=== PATIENT | female | born 1975 | race Caucasian/White ===

== ENCOUNTER 2016-09-20 09:28 | Emergency (ER) | payer OTHER ==
[2016-09-20] MEDS: 0.9 % SODIUM CHLORIDE 1,000 ML IV ONE (09:48)
[2016-09-20] MEDS ORDERED: MAGNESIUM SULFATE/D5W 100 ML IV ONE ×2 (09:48→10:31)
[2016-09-20] MEDS ORDERED: ONDANSETRON HCL/PF 4 MG/ 2ML VIAL ONE (09:48)
[2016-09-20] MEDS ORDERED: DEXAMETHASONE SOD PHOS 4 MG/ML VIAL ONE (09:48)
[2016-09-20] MEDS ORDERED: KETOROLAC TROMETHAMINE 30 MG/1ML VIAL ONE (09:48)
[2016-09-20] MEDS ORDERED: 0.9 % SODIUM CHLORIDE 1,000 ML IV ONE (09:48)
[2016-09-20] MEDS: DEXAMETHASONE SOD PHOS 4 MG/ML VIAL IVP ONE (09:49)
[2016-09-20] MEDS: ONDANSETRON HCL/PF 4 MG/ 2ML VIAL IVP ONE (09:50)
[2016-09-20] MEDS: KETOROLAC TROMETHAMINE 30 MG/1ML VIAL IVP ONE (09:51)
[2016-09-20] MEDS: MAGNESIUM SULFATE/D5W 1 GM in PREMIX BAG 1 BAG IV ONE ×2 (09:52→10:32)
--- NOTE | 2016-09-20 10:06 | ED Physician Documentation ---
Headache - HPI Stated Complaint: Migraine headache Chief Complaint: Headache Additional Information: h/a onset progressive 4 d ago w/typical mc aura prog worse w/profuse n/e- tryptins do not help Onset: days ago (4) Timing: gradual New Gradual Onset: No Exposure To: none Severity: moderate Quality: similar to previous Associated Symptoms: problems with vision, sensitivity to light, nausea, vomiting. denies: fever, chills Preceding Symptoms: visual disturbance Exacerbated By: light, noise, movement - ROS NEURO/PSYCH: depression EYES/ENT: denies: sore throat, difficulty swallowing CVS/RESP: none GI/: abdominal pain MS/SKIN/LYMPH: denies: muscle aches all systems neg except as marked: Yes - PAST HX Medical History: no pertinent history, migraines Surgical History: other (c-sect) Allergies/Adverse Reactions: Allergies Allergy/AdvReac Type Severity Reaction Status Date / Time meperidine HCl [From Demerol] AdvReac Throat Verified 09/20/16 09:38 Swelling Penicillins AdvReac Throat Verified 09/20/16 09:38 Swelling Home Medications: Ambulatory Orders Medication Instructions Recorded NK [NK] 09/20/16 - SOCIAL HX Smoking History: non-smoker Alcohol Use: none - Family HX Family History: none - VITAL SIGNS Vital Signs: Vital Signs Temp Pulse Resp BP Pulse Ox 98.1 F 69 20 108/53 100 09/20/16 09:41 09/20/16 09:41 09/20/16 09:41 09/20/16 09:41 09/20/16 09:41 - REVIEWED ASSESSMENTS Nursing Assessment Reviewed: Yes Vitals Reviewed: Yes ED Results Lab/Radiology - Orders Orders: ED Orders Category Date Time Status Place Saline Lock/IV Now Care 09/20/16 09:46 Active 0.9 % Sodium Chloride [Normal Saline] 1,000 ml Med 09/20/16 09:48 Discontinued IV .STK-MED 0.9 % Sodium Chloride [Normal Saline] 1,000 ml Med 09/20/16 09:47 Discontinued IV NOW Dexamethasone Sod Phosphate [Decadron] Med 09/20/16 09:48 Discontinued 4 mg .ROUTE .STK-MED ONE Dexamethasone Sod Phosphate [Decadron] Med 09/20/16 09:46 Discontinued 4 mg IVP NOW ONE Ketorolac Tromethamine [Toradol] Med 09/20/16 09:48 Discontinued 30 mg .ROUTE .STK-MED ONE Ketorolac Tromethamine [Toradol] Med 09/20/16 09:46 Discontinued 30 mg IVP NOW ONE Magnesium Sulfate/D5w [Magnesium-D5w 1 gm/100 ml Soln] Med 09/20/16 09:46 Discontinued 1 gm Premix Bag [Premix Fluid] 1 bag IV NOW Magnesium Sulfate/D5w [Magnesium-D5w 1 gm/100 ml Soln] Med 09/20/16 09:47 Discontinued 1 gm Premix Bag [Premix Fluid] 1 bag IV NOW Magnesium Sulfate/D5w [Magnesium-D5w 1 gm/100 ml Soln] Med 09/20/16 10:31 Discontinued 100 ml IV .STK-MED Magnesium Sulfate/D5w [Magnesium-D5w 1 gm/100 ml Soln] Med 09/20/16 09:48 Discontinued 200 ml IV .STK-MED Ondansetron HCl/Pf [Zofran 4 mg/2 ml] Med 09/20/16 09:48 Discontinued 4 mg .ROUTE .STK-MED ONE Ondansetron HCl/Pf [Zofran 4 mg/2 ml] Med 09/20/16 09:46 Discontinued 4 mg IVP NOW ONE Headache Physical Exam - EXAM General Appearance: moderate distress EENT: no facial swelling Neck: normal inspection Respiratory: no resp distress, breath sounds normal CVS: reg. rate & rhythm, heart sounds nml Abdomen: non-tender Skin: color nml, no rash. No: cyanosis, diaphoresis, pallor Extremitites: non-tender, normal range of motion - NEURO/PSYCH Higher Functions: alert, oriented x3. denies: mood/affect nml Cerebellar: nml as tested (amb to ed w/o difficulty) Discharge Clincal Impression: Migraine headache with aura Home Medications: Ambulatory Orders NK [NK] 09/20/16 Comments: home sleep dark room Condition: Good Disposition: 01 HOME, SELF-CARE Decision to Admit: NO Decision Time: 11:06
[2016-09-20 11:16] VITALS: BP 103/48
== END 2016-09-20 11:09 | disposition home or self-care (01) ==
LOC: ED 09:28
DX: G43.009 Migraine without aura, not intractable, without status migrainosus (principal)
CPT/HCPCS: J1100; J1885; J2405; J3475; J7030; 96361; 96374; 96375; 99283; 99284; S1016

== ENCOUNTER 2017-10-30 10:44 | Outpatient (CLI) | payer BC, OTHER ==
[2017-10-31 09:49] LABS: ADENOVIRUS DNA NEGATIVE (NEGATIVE); BORDETELLA PERTUSSIS DNA NEGATIVE (NEGATIVE); SOURCE: NASOPHARYNGEAL SWAB
--- NOTE | 2017-11-01 07:03 | Diagnostic Imaging Report ---
KARY GARCIA (CHRONIC MANAGER) - OP [facility] [address] [facility] [address] Report Submission Date: Oct 30, 2017 12:35:32 PM [employer] Patient Study Name: LALITHA MCDANIEL Date: Oct 30, 2017 11:03:34 AM [employer]ODUCT [employer]CH[employer] Modality Type: CR Gender: F Description: CHEST : 73 Institution: [facility] Physician: KARY GARCIA (HUGH) - OP Chest 2 views History: Cough and fever Findings: Breast implants are observed. A calcified left lung granuloma is present. There is no infiltrate or pleural effusion. Heart size and pulmonary vascularity are normal. Mild dextroconvex thoracic scoliosis is present. Impression: Scoliosis, breast implants, and old granulomatous disease without pneumonia. Electronically signed on Oct 30, 2017 12:35:32 PM PRODUCT MERCHANDISER by: Vinh LOBO
== END 2017-10-30 10:45 ==
LOC: LAB 10:44
PROVIDERS: ATTEND Nurse Practitioner Family
DX: J11.1 Influenza due to unidentified influenza virus with other respiratory manifestations (principal); R05 Cough; R50.9 Fever, unspecified
CPT/HCPCS: 71046; 87486; 87581; 87633; 87798

== ENCOUNTER 2019-05-10 13:44 | Outpatient (CLI) | payer BC ==
[2019-05-10 14:29] LABS: APPEARANCE,URINE CLOUDY (CLEAR); COLOR,URINE ORANGE (YELLOW)
== END 2019-05-10 13:46 ==
LOC: LAB 13:44
PROVIDERS: ATTEND Obstetrics & Gynecology Gynecologic Oncology
DX: R30.0 Dysuria (principal)
CPT/HCPCS: 81002; 87086

== ENCOUNTER 2019-05-11 18:36 | Observation (INO) | payer BC, OTHER ==
--- NOTE | 2019-05-11 18:40 | ED Physician Documentation ---
Abdominal Pain - HISTORIAN Historian: patient - HPI Stated Complaint: abdominal pain Chief Complaint: Abdominal Pain Onset: days ago (1 -- increased since 3 pm ) Duration: constant Timing: worse Context: denies: out of country travel, bad food, recent trauma Severity: severe (10/10) Quality: pain Associated Symptoms: nausea, other (she had a UTI two days ago ) Exacerbated by: movements, upright position Relieved by: nothing Further Comments: yes (She states two days ago she was treated for a UTI and she states the symptoms were progressively worse tonight and she started to have 10/10 pain and she decided to come to ER. She does have nausea. No fever. NO visable blood in urine although she is taking Azo. The pain is right lower quadrant.) - ROS CONST: recent illness (UTI) GI/: dark urine, problems urinating (prior to today ) EYES/ENT: none MS/SKIN/LYMPH: none NEURO/PSYCH: none - SOCIAL HX Smoking History: non-smoker Alcohol Use: none Drug Use: none - FAMILY HX Family History: none - PAST HX Past History: none Ischemic Bowel Risk Factors: none Other History: none Immunizations: UTD Home Medications: Ambulatory Orders Medication Instructions Recorded NK 09/20/16 Allergies/Adverse Reactions: Allergies Allergy/AdvReac Type Severity Reaction Status Date / Time latex Allergy Verified 05/11/19 18:58 Sulfa (Sulfonamide Allergy Verified 05/11/19 18:58 Antibiotics) meperidine HCl [From Demerol] AdvReac Throat Verified 09/20/16 09:38 Swelling Penicillins AdvReac Throat Verified 09/20/16 09:38 Swelling - VITAL SIGNS Vital Signs: Vital Signs Temp Pulse Resp BP Pulse Ox 98.9 F 95 H 18 126/79 97 05/11/19 18:38 05/11/19 22:18 05/11/19 22:18 05/11/19 20:30 05/11/19 22:18 - REVIEWED ASSESSMENTS Nursing Assessment Reviewed: Yes Vitals Reviewed: Yes Progress - Progress Progress: 1934: states pain is 8/10 DG 1947: States pain is 5/10 and improved nausea DG 2012: States pain is back to an 8 DG 2022: States pain is a 4/10 DG 2036: states pain is now 8/10 DG 2114: states pain is 6-7/10 and discussion on what she feels is an acceptable pain level she states 5 DG 2129: she is saying pain is back to 8-9/10 she states she had a bladder surgery so she doesnt have sensation for when she needs to urinate. DG 2135: she states she is having some nausea at this time. up to bathroom with standby engineer second assistant DG 2149: still complains of nausea and pain. She states she cannot void . Did discuss I&O due to the fact she states she has no urinary urge at this time due to another surgery. After which she did void without increased pain. DG 2214: will admit to obs for pain control DG 2119: will keep her obs to control pain she is agreeable DG ED Results Lab/Radiology - Lab Results Lab Results: Lab Results 05/11/19 05/11/19 05/11/19 18:57 18:45 18:45 WBC 5.00 K/ul K/ul (4.00-12.00) RBC 4.57 M/ul M/ul (3.90-5.20) Hgb 13.1 g/dL g/dL (11.5-16.0) Hct 39.2 % % (34.5-46.5) MCV 86.0 fl fl (80.0-100.0) MCH 28.7 pg pg (28.0-34.0) MCHC 33.4 g/dL g/dL (30.0-36.0) RDW 13.8 % % (11.3-14.3) Plt Count 213 K/mm3 K/mm3 (130-400) Neut % (Auto) 58.2 % % (39.0-79.0) Lymph % (Auto) 31.9 % % (16.0-50.0) [place] % (Auto) 6.9 % % (0.0-11.0) Eos % (Auto) 2.7 % % (0.0-6.8) Baso % (Auto) 0.3 % % (0.0-1.5) Neut # (Auto) 2.9 # k/uL # k/uL (1.4-7.7) Lymph # (Auto) 1.6 # k/uL # k/uL (0.6-4.0) [place] # (Auto) 0.4 # k/uL # k/uL (0.0-0.9) Eos # (Auto) 0.1 # k/uL # k/uL (0.0-0.6) Baso # (Auto) 0.0 # k/uL # k/uL (0.0-0.5) Sodium 144 mmol/L mmol/L (137-145) Potassium 3.6 mmol/L mmol/L (3.5-5.1) Chloride 102 mmol/L mmol/L (98-107) Carbon Dioxide 27 mmol/L mmol/L (22-30) Anion Gap 18.6 BUN 16 mg/dL mg/dL (7-17) Creatinine 0.72 mg/dL mg/dL (0.52-1.04) Est GFR ( Amer) > 60 (60 - ) Est GFR (Non-Af Amer) > 60 (60 - ) Glucose 106 mg/dL mg/dL (74-106) Calcium 10.0 mg/dL mg/dL (8.4-10.2) Total Bilirubin 0.4 mg/dL mg/dL (0.2-1.3) AST 27 U/L U/L (15-46) ALT 15 U/L U/L (13-69) Alkaline Phosphatase 141 U/L H U/L (38-126) Total Protein 8.4 g/dL H g/dL (6.3-8.2) Albumin 5.0 g/dL g/dL (3.5-5.0) Urine Color [place] (YELLOW) Urine Appearance Clear (CLEAR) Urine pH 5.0 (5.0 - 8.0) Ur Specific [place] 1.025 (1.010-1.030) Urine Protein 2+ mg/dL H mg/dL (NEGATIVE) Urine Ketones Trace mg/dL H mg/dL (NEGATIVE) Urine Occult Blood 3+ H (NEGATIVE) Urine Nitrite Pos (NEGATIVE) Urine Bilirubin 2+ H (NEGATIVE) Urine Urobilinogen 4.0 Eu H Eu (0.2-1.0) Ur Leukocyte Esterase 3+ H (NEGATIVE) Urine Glucose 1+ mg/dL H mg/dL (NEGATIVE) - Radiology Radiology Impressions: Exam: CT abdomen and pelvis without contrast. History: Right-sided flank pain. Axial images through the abdomen and pelvis without oral or IV contrast is submitted along with sagittal and coronal reformatted images. The visualized lower lung singh are clear. No free intraperitoneal air is identified. The gallbladder is distended with a single stone associated with it measuring 1.1 cm in greatest diameter. The liver, spleen and pancreas appear normal in attenuation. The adrenal glands are normal configuration. The abdominal aorta is of normal caliber. No periaortic lymphadenopathy is detected on this study. A right-sided hydronephrosis and hydroureter is identified. A 2 mm distal right ureteral stone is noted. No left-sided hydronephrosis is identified. The urinary bladder is contracted. The uterus is not visualized. No adnexal masses or free cul-de-sac fluid is identified. The small bowel is of normal caliber. Air and stool seen throughout the large intestine. The appendix is not well visualized. A levoscoliosis to the lumbar spine is noted. No other bony abnormalities are identified. Impression: Right-sided hydronephrosis and hydroureter secondary to a distal 2 mm right ureteral stone. Cholelithiasis. Nonspecific bowel gas pattern. No inflammatory changes in the mesentery or ascites is identified. Electronically signed on May 11, 2019 7:21:18 PM CDT by: Joshua Hardy - Orders Orders: ED Orders Category Date Time Status IV Started NOW Care 05/11/19 18:[address] ABD & PELVIS W/O CON Stat Exams 05/11/19 Taken AMYLASE Routine Lab 05/11/19 Received CBC/PLATELET/DIFF Stat Lab 05/11/19 18:45 Completed CMP Stat Lab 05/11/19 18:45 Completed LIPASE Stat Lab 05/11/19 Received UA MACRO DIP ONLY Routine Lab 05/11/19 18:57 Completed URINE CULTURE Routine Lab 05/11/19 18:57 Received 0.9 % Sodium Chloride [Normal Saline] 1,000 ml Med 05/11/19 18:45 Discontinued IV NOW 0.9 % Sodium Chloride [Normal Saline] 1,000 ml Med 05/11/19 19:35 Discontinued IV NOW 0.9 % Sodium Chloride [Normal Saline] 1,000 ml Med 05/11/19 20:13 Discontinued IV NOW Ketorolac Tromethamine [Toradol] Med 05/11/19 18:46 Discontinued 30 mg IV NOW ONE Morphine Sulfate Med 05/11/19 20:35 Discontinued 2 mg IV NOW ONE Ondansetron HCl/Pf [Zofran] Med 05/11/19 18:46 Discontinued 4 mg IVP NOW ONE Promethazine HCl [Phenergan] 25 mg Med 05/11/19 21:39 Discontinued 0.9 % Sodium Chloride [Normal Saline] 50 ml IV NOW Tamsulosin HCl [Flomax] Med 05/11/19 20:26 Discontinued 0.4 mg PO NOW ONE fentaNYL CITRATE/PF [Sublimaze] Med 05/11/19 19:33 Discontinued 50 mcg IVP NOW ONE fentaNYL CITRATE/PF [Sublimaze] Med 05/11/19 20:13 Discontinued 50 mcg IVP NOW ONE Abdominal Pain Physical Exam - Physical Exam General Appearance: alert, moderate distress EENT: eye inspection normal, no signs of dehydration NECK: normal inspection RESPIRATORY: no resp distress, chest non-tender, breath sounds normal CVS: reg rate & rhythm, heart sounds normal ABDOMEN: soft, tenderness (RLQ ), abnormal bowel sounds, decreased BS RECTAL: normal exam BACK: normal inspection, CVA tenderness (R) SKIN: warm/dry, normal color EXTREMITIES: non-tender, normal range of motion NEURO: oriented X3 Vital Signs: Vital Signs Temp Pulse Resp BP Pulse Ox 98.9 F 95 H 18 126/79 97 05/11/19 18:38 05/11/19 22:18 05/11/19 22:18 05/11/19 20:30 05/11/19 22:18 Discharge Clincal Impression: Kidney stone on right side Cholelithiasis Qualifiers: Cholelithiasis location: other site Biliary obstruction: without biliary obstruction Qualified Code(s): K80.80 - Other cholelithiasis without obstruction Condition: Stable Decision to Admit: NO Date of Decison to Admit: 05/11/19 Decision Time: 22:16
[2019-05-11] MEDS ORDERED: 0.9 % SODIUM CHLORIDE 1,000 ML IV ONE ×3 (18:45→20:13)
[2019-05-11] MEDS ORDERED: KETOROLAC TROMETHAMINE 30 MG/1ML VIAL IV ONE (18:46)
[2019-05-11] MEDS ORDERED: ONDANSETRON HCL/PF 4 MG/ 2ML VIAL IVP ONE (18:46)
[2019-05-11 18:55] LABS: BASOPHILS % 0.3 % (0.0-1.5); NEUTROPHILS # 2.9 # k/uL (1.4-7.7)
[2019-05-11 19:07] LABS: eGFR (Non-African) > 60
[2019-05-11 19:08] LABS: APPEARANCE,URINE CLEAR (CLEAR); COLOR,URINE AMBER (YELLOW); OCCULT BLOOD,URINE 3+ (NEGATIVE)
[2019-05-11] MEDS ORDERED: fentaNYL CITRATE/PF 100 MCG/2 ML INJ. IVP ONE ×2 (19:33→20:13)
[2019-05-11] MEDS ORDERED: TAMSULOSIN HCL 0.4 MG CAP.ER.24H PO ONE (20:26)
[2019-05-11] MEDS ORDERED: MORPHINE SULFATE 5 MG/ML ML IV ONE (20:35)
[2019-05-11] MEDS ORDERED: PROMETHAZINE HCL 25 MG in 0.9 % SODIUM CHLORIDE 50 ML IV ONE (21:39)
[2019-05-11] MEDS ORDERED: KETOROLAC TROMETHAMINE 30 MG/1ML VIAL IV PRN (22:26)
[2019-05-11] MEDS ORDERED: fentaNYL CITRATE/PF 100 MCG/2 ML INJ. IV PRN (22:27)
[2019-05-11] MEDS ORDERED: ONDANSETRON HCL/PF 4 MG/ 2ML VIAL IVP PRN (22:28)
[2019-05-11] MEDS ORDERED: PROMETHAZINE HCL 25 MG in 0.9 % SODIUM CHLORIDE 50 ML IV PRN (22:28)
[2019-05-11] MEDS: 0.9 % SODIUM CHLORIDE 1,000 ML IV SCH (22:30)
[2019-05-11 23:07] VITALS: BMI 25.7
[2019-05-12 06:00] LABS: BASOPHILS % 0.5 % (0.0-1.5); NEUTROPHILS # 4.2 # k/uL (1.4-7.7)
[2019-05-12 06:05] LABS: eGFR (Non-African) > 60
[2019-05-12] MEDS ORDERED: traMADol HCL 50 MG TABLET PO PRN (06:46)
[2019-05-12] MEDS ORDERED: CYCLOBENZAPRINE HCL 10 MG TABLET PO PRN (06:47)
[2019-05-12] MEDS: 0.9 % SODIUM CHLORIDE 1,000 ML IV SCH (07:59)
[2019-05-12 08:40] VITALS: BP 111/74
[2019-05-12] MEDS ORDERED: TAMSULOSIN HCL 0.4 MG CAP.ER.24H PO SCH (09:00)
--- NOTE | 2019-05-12 10:16 | Discharge Summary ---
Discharge Summary - Discharge [facility] Admission Date: 05/11/19 Discharge Date: 05/12/19 Discharge To: Home History of Present Illness: Patient presented to ER for right flank pain and RLQ pain. Imaging revealed right kidney stone and gall bladder stone. Patient had intractable pain in the ER. She was admitted for pain control. Additional Instructions: Follow up with PCP within 4 days. Discuss referral to general surgeon for gall bladder removal Condition at Discharge: Stable Home Medications: Ambulatory Orders Medication Instructions Recorded NK 09/20/16 Consultations this Visit: None Procedures this Visit: None Allergies/Adverse Reactions: Allergies Allergy/AdvReac Type Severity Reaction Status Date / Time latex Allergy Verified 05/11/19 18:58 Sulfa (Sulfonamide Allergy Verified 05/11/19 18:58 Antibiotics) meperidine HCl [From Demerol] AdvReac Throat Verified 09/20/16 09:38 Swelling Penicillins AdvReac Throat Verified 09/20/16 09:38 Swelling Patient Problems: Current Active Problems Problem Status Onset Cholelithiasis Acute Kidney stone on right side Acute Discharge Summary: Patient presented to ER for right flank pain and RLQ pain. Imaging revealed r ight kidney stone and gall bladder stone. Patient had intractable pain in the ER. She was admitted for pain control. Patient utlized IV pain control meds and was transitioned to oral medication. Once pain was under control she was deemed stable for discharge. Hospital Course: See discharge summary
--- NOTE | 2019-05-12 14:13 | Diagnostic Imaging Report ---
PAOLO CERVANTES [facility] [address] [facility] [address] [place], [place]. [address] Report Submission Date: May 11, 2019 7:21:18 PM CDT Patient Study Name: LALITHA MCDANIEL Date: May 11, 2019 6:54:14 PM CDT Modality Type: CT\SR Gender: F Description: CT ABD PELVIS W/O CO : 73 Institution: [facility] Physician: PAOLO CERVANTES Exam: CT abdomen and pelvis without contrast. History: Right-sided flank pain. Axial images through the abdomen and pelvis without oral or IV contrast is submitted along with sagittal and coronal reformatted images. The visualized lower lung singh are clear. No free intraperitoneal air is identified. The gallbladder is distended with a single stone associated with it measuring 1.1 cm in greatest diameter. The liver, spleen and pancreas appear normal in attenuation. The adrenal glands are normal configuration. The abdominal aorta is of normal caliber. No periaortic lymphadenopathy is detected on this study. A right-sided hydronephrosis and hydroureter is identified. A 2 mm distal right ureteral stone is noted. No left-sided hydronephrosis is identified. The urinary bladder is contracted. The uterus is not visualized. No adnexal masses or free cul-de-sac fluid is identified. The small bowel is of normal caliber. Air and stool seen throughout the large intestine. The appendix is not well visualized. A levoscoliosis to the lumbar spine is noted. No other bony abnormalities are identified. Impression: Right-sided hydronephrosis and hydroureter secondary to a distal 2 mm right ureteral stone. Cholelithiasis. Nonspecific bowel gas pattern. No inflammatory changes in the mesentery or ascites is identified. Electronically signed on May 11, 2019 7:21:18 PM CDT by: Joshua LOBO
== END 2019-05-12 11:20 | disposition home or self-care (01) ==
LOC: ED 18:36 → SOUTH 22:16
PROVIDERS: ADMIT Nurse Practitioner Family; ATTEND Nurse Practitioner Family
DX: N20.0 Calculus of kidney (principal); K80.20 Calculus of gallbladder without cholecystitis without obstruction
CPT/HCPCS: 74176; 80053; 81002; 82150; 83690; 85025; 87086; 96360; 96361; 96372; 96374; 96375; 96376; 99218; 99282; 99283; 99284; J1885; J2405; J2550; J3010; G0378; J7030; S1016

== ENCOUNTER 2019-05-19 09:00 | Outpatient (CLI) | payer OTHER ==
--- NOTE | 2019-05-19 09:42 | Diagnostic Imaging Report ---
KARY GARCIA (SOFTWARE SOLUTIONS ARCHITECT) - OP [facility] [address] [facility].[address] [address] Report Submission Date: May 19, 2019 9:24:59 AM CDT Patient Study Name: LALITHA MCDANIEL Date: May 19, 2019 9:01:07 AM CDT Modality Type: DX Gender: F Description: ABD COMPLETE : 73 Institution: [facility] Physician: KARY GARCIA (HUGH) - OP Exam: Abdominal obstruction series. History: Renal stones. Supine and upright view of the abdomen are submitted and correlated with a CT as the abdomen performed on May 11, 2019. Scattered loops of bowel gas in both large and small intestine is noted with a mild amount of retained fecal material seen in the colon. No organomegaly is identified. No renal or biliary calcifications are noted. There are numerous calcifications visualized over the pelvis. On this study is difficult to determine if 1 of these represents the distal right ureteral stone seen on previous CT. Impression: Nonspecific bowel gas pattern. Electronically signed on May 19, 2019 9:24:59 AM CDT by: Joshua LOBO
== END 2019-05-19 09:15 ==
LOC: RAD 09:00 → LAB 09:00
PROVIDERS: ATTEND Nurse Practitioner Family
DX: N20.0 Calculus of kidney (principal)
CPT/HCPCS: 74019